=== PATIENT | female | born 1965 | race Caucasian/White ===

== ENCOUNTER 2020-03-06 14:55 | Outpatient (CLI) | payer OTHER, SELFPAY ==
--- NOTE | 2020-03-06 15:02 | MM_ITS ---
WS: [id number] BILATERAL SCREENING DIGITAL MAMMOGRAM WITH CAD HISTORY: SCREENING COMPARISON: 03/23/2018, 02/10/2017 and 01/24/2017 Bilateral CC and MLO views submitted. Computer aided detection analyzed. Breast composition: There are scattered areas of fibroglandular density. No suspicious masses, microc alcifications or architectural distortion. Benign calcifications LEFT breast. Asymmetry described on a prior study from 2017 continues to decrease and become less conspicuous. MM/[place] [id number] IMPRESSION: BI-RADS: 2-Benign FOLLOW UP: 1 Year Follow-up
--- NOTE | 2020-03-06 15:45 | XR_ITS ---
WS: [id number] SCREENING DEXA SCAN [facility] CLINICAL INFORMATION: POST MENOPAUSAL COMPARISON: None. FINDINGS: The L1-L4 bone mineral density measures 1.146 g/cm2. This corresponds to a T score score of -0.3 and Z score of -0.1. Left femoral neck bone mineral density measures 0.980 g/cm2. This corresponds to a T score of -0.2 an d Z score of 0.1. Right femoral neck bone mineral density measures 0.979 g/cm2. This corresponds to a T score -0.2of an d Z score of 0.1. Mean femoral neck bone mineral density measures 0.979 g/cm2. This corresponds to a T score of -0.2 an d Z score of 0.1. XR/XR DEXA axial skeleton* [id number] IMPRESSION: Normal bone mineralization. Patient's FRAX calculated 10 year probability for major osteoporotic fracture i s 9.4 % and osteoporotic hip fracture is 1.2%.
== END 2020-03-06 14:56 | disposition home or self-care (01) ==
LOC: RADSHAW 15:01
PROVIDERS: PCP Physician Assistant; Visit Provider Physician Assistant
DX: Z12.31 Encounter for screening mammogram for malignant neoplasm of breast (principal); Z78.0 Asymptomatic menopausal state
CPT/HCPCS: 77067; 77080

== ENCOUNTER 2021-03-07 07:20 | Outpatient (CLI) | payer OTHER, SELFPAY ==
[2021-03-07 07:30] VITALS: BP 111/70; PULSE 110; RESP 16; TEMP 36.7; O2SAT 94; BMI 27.4
[2021-03-07 07:37] VITALS: BMI 27.4
[2021-03-07 08:25] VITALS: BP 66/44; PULSE 85; RESP 14; O2SAT 98
--- NOTE | 2021-03-07 08:59 | PC.NURSE ---
Patient tolerated Regeneron monoclonal antibody infusion well. Infusion completed at 0816. Pt v/s taken: 98% o2, hr 85, rr16. Unable to get an auto bp reading. Manual bp 66/44. Pt reported feeling faint. Pt passed out in her chair and vomited. Rapid response called at 0821. Transferred pt to stretcher on her R side and placed 2L o2 on the patient. Patient came to herself and was oriented. Rapid response came at 0823 to assess patient. Patient taken up to ER via stretcher by response staff at 0825, pt was stable and oriented at that time. Keith VARGHESE
== END 2021-03-07 07:21 | disposition home or self-care (01) ==
LOC: OPS 07:25
PROVIDERS: PCP Physician Assistant; Visit Provider Nurse Practitioner Family
DX: U07.1 COVID-19 (principal)
CPT/HCPCS: 96365

== ENCOUNTER 2021-03-07 08:28 | Emergency (ER) | payer OTHER, SELFPAY ==
[2021-03-07] VITALS (9 sets, daily range): BP systolic 80–116; BP diastolic 50–86; PULSE 74–88; RESP 16–30; TEMP 36.9; O2SAT 95–100; BMI 27.0
--- NOTE | 2021-03-07 08:37 | XR_ITS ---
WS: [id number] Portable AP upright chest, 03/07/2021 Clinical Data: hypxoia, covid Comparison: PA and lateral chest, 08/22/2010. Findings: No nodules, masses or effusions are seen. The heart is normal. The pulmonary vascularity is not increased. No pneumothorax is seen. There is a minimal patchy opacity overlying the left diaphr agm which could be atelectasis and/or minimal pneumonia. Monitor leads are on the chest wall. There i s a small calcification overlying the left greater tuberosity which could represent calcific bursitis and/or tendinitis. XR/XR chest 1V portable [id number] Impression: Minimal patchy opacity overlying left diaphragm which could represent minimal p neumonia and/or atelectasis.
[2021-03-07] MEDS: diphenhydrAMINE 50 mg/mL SDV 1mL IVP (08:42)
[2021-03-07] MEDS: ondansetron 2 mg/ML SDV 2 mL 4 MG IVP (08:42)
--- NOTE | 2021-03-07 08:52 | ED_ITS ---
HPI - General Adult General: Chief complaint: General Medical Stated complaint: post infusion complications Time Seen by Provider: 03/07/21 08:30 History of Present Illness: HPI narrative: Patient is a 55-year-old female who was diagnosed with Covid on PCR 2 days ago presenting to the emergency room for complications relating to BAM infusion. [facility] have a BAM effusion 2 days ago. About 30 minutes ago, patient finished her infusion and shortly after suddenly she started having vomiting, diarrhea, and had low blood pressure. Infusion satff also noticed patient syncoped and briefly lost consciousness. A rapid response at [facility] was called and patient was brought to the emergency room for evalution. By the time, I evaluated patient, patient is AO x3, with O2 sat 89%. There is no wheezing on exam. Pressure is noted to be soft and 90/60. Patient denies any allergies to any medicine. Patient was transported to the ER. On arrival, patient was satting >95% without any r espiratory changes. Onset: 20 minutes ago Duration:20 minutes Location:home Severity:moderate Review of Systems Narrative: Constitutional: No fever, no chills. +generalized weakness HEENT: No vision changes CV: No chest pain, no palpitations PULM: no cough, no dyspnea. GI: No abdominal pain, +N/+V/+D. : No dysuria MSKEL: No muscle pain SKIN: No new rashes, no lesions. NEURO: No headache, no focal weakness. HEME: No visible bruises PSYCH: Normal mood [facility] Female Reproductive History: Date of last menstrual period: 09/28/20 Physical Exam Narrative: EXAM NARRATIVE: Head: Atraumatic Eyes: PERRL, conjunctiva without injection ENT: Mucous membrane moist, no oropharyngeal swelling NECK: Supple, ROM intact LUNGS: LCTAB, no crackles/rhonchi/wheezing CV: RRR ABDOMEN: Soft, nontender in all quadrants EXTREMITY: Normal ROM SKIN: Visible erythema, induration, orwheals NEURO: Awake and alert, no focal motor deficits PSYCH: Normal mood and affect Course Vital Signs: Vital signs: Vital Signs Temperature 98.4 F 03/07/21 08:30 Pulse Rate 83 03/07/21 11:39 Respiratory Rate 18 03/07/21 11:39 Blood Pressure 116/86 03/07/21 11:39 Pulse Oximetry 95 03/07/21 11:39 MDM - General Adult MDM Narrative: Medical decision making narrative: 55-year-old female presenting to the emergency room after having complication from BAM infusion. On arrival, patient is AAO x3, blood pressure still very soft at 90/60. Patient improved to greater than 95%. No signs of anaphylaxis at this present time given no skin findings or wheezing. However given complication we will treat empirically with Benadryl, Pepcid, IVF, and solu-medrol. X-ray did not show any signs of focal finding. Patient continues to satting well now not requiring oxygen. Patient was able to ambulate without any difficulty. No signs of oral airway compromise. Patient tolerated p.o. in the emergency room. At 11am after observation for 2 hrs, patient verbalized desire to go home. I have given patient strict return precautions for any signs of worsening shortness of breath, diarrhea, abdominal complaints, nausea vomiting, any new or concerning complaints Disposition: Discharge. Patient is given strict return compression for any new or concerning complaints. Imaging Data^: Other Imaging: Radiologist's impression: [employer] [address] ReportSigned Patient: Tiffanie Wayne AUnit #: [id number]: 1965Acct#:[id number]/Sex: 55 / FADM Date: 03/07/21Loc: [facility]/Bed:Attending Dr: Ordering Provider/Ordering MD: Terrence Swain MD Date of Service: 03/07/21 Procedure(s): XR chest 1V portable [id number] Accession Number(s): [id number] Report Number: [id number] WS: [id number] Portable AP upright chest, 03/07/2021 Clinical Data: hypxoia, covid Comparison: PA and lateral chest, 08/22/2010. Findings: No nodules, masses or effusions are seen. The heart is normal. The pulmonary vascularity is not increased. No pneumothorax is seen. There is a minimal patchy opacity overlying the left diaphragm which could be atelectasis and/or minimal pneumonia. Monitor leads are on the chest wall. There is a small calcification overlying the left greater tuberosity which could represent calcific bursitis and/or tendinitis. XR/XR chest 1V portable [id number] Impression: Minimal patchy opacity overlying left diaphragm which could represent minimal pneumonia and/or atelectasis. Dictated By:Delmi Villa MDSigned By:Delmi Villa MDSigned Date/Time:03/07/21 0855DD/ 0853 Discharge Plan Discharge Patient Disposition: Home Clinical Impression: COVID-19 Condition: Stable Prescriptions: No Action multivitamin Tablet 1 tab PO BEDTIME RF: 0 atorvastatin 40 mg tablet 40 mg PO BEDTIME RF: 0 trazodone 50 mg tablet 50 mg PO BEDTIME PRN (Reason: Sleep) RF: 0 lisinopril 20 mg tablet 20 mg PO QAM RF: 0 Tylenol Extra Strength 500 mg Tablet 1,000 mg PO Q4H PRN (Reason: Pain) RF: 0 metoprolol succinate 25 mg tablet extended release 24 hr 25 mg PO QAM RF: 0 guaifenesin 400 mg Tablet 400 mg PO Q4H PRN (Reason: Congestion) RF: 0 Discharge Orders: Discharge ED (Routine); Ordered 03/07/21 Ordered By: Terrence Swain Referrals: Marquita Sandra PA [Primary Care Provider] - Discharge Diet: Advance as tolerated Discharge Activity: Resume usual activity Patient Instructions: Severe Acute Respiratory Syndrome (SARS) (ED) Activity Restrictions/Additional Instructions: Please come back to the emergency room have any shortness of breath, difficulty breathing, worsening diarrhea, fever or chills, or new or concerning complaints. Coding Level of Care Code ED Drying Machine Tender for Analilia Harrell
[2021-03-07] MEDS: sodium chloride 0.9% 1,000 ML 999 ML IV ×2 (09:00)
[2021-03-07] MEDS: famotidine 20 mg/2 mL INJ IVP (09:00)
== END 2021-03-07 11:39 | disposition home or self-care (01) ==
PROVIDERS: Emergency Provider Emergency Medicine; PCP Physician Assistant
DX: U07.1 COVID-19 (principal)
CPT/HCPCS: 71045; 96361; 96374; 96375; 99284; J1200; J2405; J2930; J3490; J7030

== ENCOUNTER 2021-03-09 13:23 | Emergency (ER) | payer OTHER, SELFPAY ==
[2021-03-09 14:25] VITALS: BP 142/82; PULSE 98; RESP 20; TEMP 37.1; O2SAT 96; BMI 29.2
--- NOTE | 2021-03-09 15:17 | XRR_ITS ---
PROCEDURE INFORMATION: Exam: XR Chest Exam date and time: 03/09/2021 3:17 PM Age: 55 years old Clinical indication: Condition or disease; Other: Covid TECHNIQUE: Imaging protocol: XR of the chest. Views: 1 view. COMPARISON: CR XR chest 1V portable [id number] 03/07/2021 8:40 AM FINDINGS: Lungs: Unremarkable. No consolidation. Pleural spaces: Unremarkable. No pleural effusion. No pneumothorax. Heart/Mediastinum: Unremarkable. No cardiomegaly. Bones/joints: Unremarkable. XR/XR chest 1V portable [id number] IMPRESSION: No acute findings.
[2021-03-09 19:38] LABS: Basophils % 0.2 %; Eosinophils % 0.2 %; Hematocrit 48.8 % (37.0-47.0); Hemoglobin 15.6 g/dL (11.5-15.3); Lymphocytes # 3.2 10^3/uL (0.8-4.8); Mean Corpuscular Hemoglobin 28.2 pg (28.0-34.0); Mean Corpuscular Volume 88.1 fl (81-99); Mean Platelet Volume 9.5 fL (7.4-10.4); Monocytes # 0.6 10^3/uL (0.2-0.9); Neutrophils # 4.41 10^3/uL (1.8-7.7); Neutrophils % 53.4 %; Nucleated Red Blood Cells % 0 %; Platelet Count 226 10^3/cmm (130-400); Red Blood Count 5.54 10^6/uL (4.1-5.3); Red Cell Distribution Width 13.9 % (12.1-15.1); White Blood Count 8.3 10^3/uL (4.0-10.0)
--- NOTE | 2021-03-09 20:03 | ED_ITS ---
HPI - COVID General: Chief Complaint: COVID symptoms Stated Complaint: sob, positive covid Time Seen by Provider: 03/09/21 20:03 Triage information: Has fever, cough or shortness of breath . Exposure to COVID + person last 14 days History of Present Illness: HPI Narrative: 55-year-old female comes in today with complaints of lightheadedness and nausea. Patient is on day 6 of COVID-19 infection. Patient was treated with monoclonal antibodies on Friday and reported a mild reaction. Patient was seen yesterday and given some IV fluids which seemed to help but then today she started having more lightheadedness and thought she may need to have more IV fluids. Patient reports some nausea and diarrhea persistent. Patient appears mildly unwell but not toxic. Patient appears no acute distress. MD complaint: known COVID positive COVID 19 common symptoms: positive nausea and diarrhea COVID Results: No Data to Display Review of Systems General: Reports: 10 or more systems reviewed and unremarkable except in HPI and below GI: Reports: nausea and diarrhea Neuro: Reports: other (light headed) [facility] ED Female Reproductive History: Date of last menstrual period: 09/28/20 Physical Exam Const: COMMON NORMALS: no acute distress and patient oriented x3 GENERAL APPEARANCE: cooperative HENMT: COMMON NORMALS: normocephalic and Normal external nose present HEAD & SCALP: normal to inspection and normocephalic NOSE: Normal external nose present MOUTH: Normal oral and palatal mucosa present Eye: GENERAL EYE: appearance normal, both eyes and all related structures Neck/C-Spine: COMMON NORMALS: full ROM Chest: COMMONS NORMALS: normal inspection of the chest Resp: COMMON NORMALS: normal respiratory effort and clear to auscultation bilaterally EFFORT & INSPECTION: Yes able to speak in complete sentences AUSCULTATION: clear to auscultation bilaterally Cardio: COMMON NORMALS: regular rate and regular rhythm RATE: regular rate RHYTHM: regular rhythm GI: COMMON NORMALS: Soft to palpation and non-tender AUSCULTATION: Yes Hyperactive bowel sounds present PALPATION: Yes Soft to palpation : COMMON NORMALS: Yes no CVA tenderness BLADDER/KIDNEY EXAM: Yes no CVA tenderness Back/Pelvis: COMMON NORMALS: no CVA tenderness and thoracic and lumbar spine normal to inspection Extremity: COMMON NORMALS: normal to inspection Neuro: COMMON NORMALS: patient oriented x3 and moves all extremities Psych: COMMON NORMALS: mental status grossly normal and cooperative Skin: COMMON NORMALS: no rashes or lesions noted GENERAL SKIN EXAM: no rashes or lesions noted Course Vital Signs: Vital signs: Vital Signs Temperature 98.1 F 03/09/21 20:10 Pulse Rate 68 03/09/21 20:37 Respiratory Rate 16 03/09/21 20:37 Blood Pressure 130/86 03/09/21 20:37 Pulse Oximetry 95 03/09/21 20:37 MDM - COVID MDM Narrative: Medical decision making narrative: 55-year-old female comes in today with complaints of lightheadedness and feeling of malaise. Patient has had COVID-19 for the last 6 days. Patient did have to be seen 2 days ago and given IV fluids for some lightheadedness and not feeling well. Patient reports persistent diarrhea. On exam abdomen soft nontender. Skin is warm and dry. Vital signs are normal. Differential diagnosis includes dehydration, viral syndrome, pneumonia. Chest x-ray did not show any pneumonia at this time. Hemoglobin adequate a little bit elevated as compared to prior lab. Sodium is 134 and anion gap is 21. Suspect patient has some mild dehydration be infused with 1 L of IV fluid and give some Zofran to help with the lightheadedness. Patient will be continued on Zofran at home and encouraged to drink plenty of fluids and follow-up with primary care. Lab Data: Labs: Lab Results 03/09/21 03/09/21 Range/Units 19:31 19:31 WBC 8.3 (4.0-10.0) 10^3/ uL RBC 5.54 H (4.1-5.3) 10^6/u L Hgb 15.6 H (11.5-15.3) g/dL Hct 48.8 H (37.0-47.0) % MCV 88.1 (81-99) fl MCH 28.2 (28.0-34.0) pg MCHC 32.0 (30.0-36.0) g/dL RDW 13.9 (12.1-15.1) % Plt Count 226 (130-400) 10^3/c mm MPV 9.5 (7.4-10.4) fL Neut % (Auto) 53.4 % Lymph % (Auto) 39.0 % [place] % (Auto) 7.0 % Eos % (Auto) 0.2 % Baso % (Auto) 0.2 % Neut # (Auto) 4.41 (1.8-7.7) 10^3/u L Lymph # (Auto) 3.2 (0.8-4.8) 10^3/u L [place] # (Auto) 0.6 (0.2-0.9) 10^3/u L Eos # (Auto) 0.0 (0.0-0.8) 10^3/u L Baso # (Auto) 0.0 (0.0-0.1) 10^3/u L Nucleated RBC % (a uto) 0 % Nucleated RBCs # 0.0 /100WBC Sodium 134 L (136-145) mmol/L Potassium 4.3 (3.5-5.1) mmol/L Chloride 99 (98-107) mmol/L Carbon Dioxide 21 L (22-29) mmol/L Anion Gap 18.3 (5-19) BUN 13 (6-20) mg/dL Creatinine 0.6 (0.5-0.9) mg/dL GFR Calculation 104.6 (90-130) mL/min Glucose 91 (65-115) mg/dL Calculated Osmolal ity 278 L (285-295) mOsm/k g Calcium 9.2 (8.5-10.5) mg/dL Total Bilirubin 0.3 (0.15-1.2) mg/dL AST 27 (0-32) U/L ALT 29 (0-33) U/L Alkaline Phosphata se 69 (35-105) IU/L C-Reactive Protein 3.3 (0.0-4.9) mg/L Total Protein 8.0 (6.6-8.7) g/dL Albumin 3.9 (3.5-5.2) g/dL Globulin 4.1 (1.3-4.6) g/dL COVID Results: No Data to Display Discharge Plan Discharge Patient Disposition: Home Clinical Impression: COVID-19, Mild dehydration Condition: Stable Prescriptions: New ondansetron 4 mg tablet,disintegrating 4 mg PO Q8H PRN (Reason: nausea and vomiting) Qty: 10 RF: 0 No Action multivitamin Tablet 1 tab PO BEDTIME RF: 0 atorvastatin 40 mg tablet 40 mg PO BEDTIME RF: 0 trazodone 50 mg tablet 50 mg PO BEDTIME PRN (Reason: Sleep) RF: 0 lisinopril 20 mg tablet 20 mg PO DAILY RF: 0 acetaminophen [Tylenol Extra Strength] 500 mg Tablet 1,000 mg PO Q4H PRN (Reason: Pain) RF: 0 metoprolol succinate 25 mg tablet extended release 24 hr 25 mg PO DAILY RF: 0 guaifenesin 400 mg Tablet 400 mg PO Q4H PRN (Reason: Congestion) RF: 0 magnesium 200 mg Tablet 200 mg PO DAILY RF: 0 zinc 50 mg Capsule 50 mg PO DAILY RF: 0 Vitamin D3 25 mcg (1,000 unit) Tablet 25 mcg PO DAILY RF: 0 Discharge Orders: Discharge ED (Routine); Ordered 03/09/21 Ordered By: Clarence Jones Referrals: Marquita Sandra PA [Primary Care Provider] - Discharge Diet: Usual diet Discharge Activity: Increase activity as tolerated Patient Instructions: Viral Syndrome (ED), Opioid Safety Coding Level of Care Code ED Rhinologist for Analilia Fwd Exam Comprehensive
[2021-03-09 20:04] LABS: Alanine Aminotransferase 29 U/L (0-33); Albumin Level 3.9 g/dL (3.5-5.2); Alkaline Phosphatase 69 IU/L (35-105); Anion Gap 18.3 (5-19); Aspartate Amino Transferase 27 U/L (0-32); Blood Urea Nitrogen 13 mg/dL (6-20); C Reactive Protein 3.3 mg/L (0.0-4.9); Calcium 9.2 mg/dL (8.5-10.5); Carbon Dioxide 21 mmol/L (22-29); Chloride 99 mmol/L (98-107); Creatinine Clr Calc Pharmacy 101.1506; Globulin 4.1 g/dL (1.3-4.6); Glomerular Filtration Rate 104.6 mL/min (90-130); Glucose 91 mg/dL (65-115); Osmolality Calculated 278 mOsm/kg (285-295); Potassium 4.3 mmol/L (3.5-5.1); Sodium 134 mmol/L (136-145); Total Bilirubin 0.3 mg/dL (0.15-1.2)
--- NOTE | 2021-03-09 20:09 | PC.NURSE ---
Assumed care if this patient at this time.
[2021-03-09 20:10] VITALS: BP 149/85; PULSE 78; RESP 16; TEMP 36.7; O2SAT 97
[2021-03-09 20:17] VITALS: O2SAT 96
[2021-03-09 20:23] LABS: Slide Review Slide Review Perform
[2021-03-09] MEDS: sodium chloride 0.9% 1,000 ML 999 ML IV (20:30)
[2021-03-09] MEDS: ondansetron 2 mg/ML SDV 2 mL 4 MG IVP (20:30)
[2021-03-09 20:37] VITALS: BP 130/86; PULSE 68; RESP 16; O2SAT 95
[2021-03-09 22:15] VITALS: BP 152/89; PULSE 68; RESP 16; TEMP 36.6; O2SAT 96
== END 2021-03-09 22:17 | disposition home or self-care (01) ==
PROVIDERS: Physician Assistant; Emergency Provider Nurse Practitioner Family; PCP Physician Assistant
DX: U07.1 COVID-19 (principal); E86.0 Dehydration
CPT/HCPCS: 71045; 80053; 85025; 86140; 96361; 96374; 99284; J2405; J7030

== ENCOUNTER 2021-04-25 15:07 | Outpatient (CLI) | payer OTHER, SELFPAY ==
--- NOTE | 2021-04-25 15:11 | MM_ITS ---
WS: [id number] BILATERAL DIGITAL SCREENING MAMMOGRAPHY WITH CAD CLINICAL INFORMATION: SCREENING HISTORY: Screening mammogram. No current complaints. COMPARISON: March 06, 2020 TECHNIQUE: Bilateral CC and MLO views. FINDINGS: Scattered fibroglandular densities bilaterally. Lucent centered calcifications left breast. No suspic ious focal mass, asymmetry, calcifications, or architectural distortion. No evidence of malignancy. MM/[place] [id number] IMPRESSION: BI-RADS: 2-Benign FOLLOW UP: 1 Year Follow-up Recommend return to annual screening mammography.
== END 2021-04-25 15:08 | disposition home or self-care (01) ==
LOC: RADSHAW 15:10
PROVIDERS: PCP Physician Assistant; Visit Provider Physician Assistant
DX: Z12.31 Encounter for screening mammogram for malignant neoplasm of breast (principal)
CPT/HCPCS: 77067

== ENCOUNTER 2022-04-15 16:41 | Outpatient (CLI) | payer OTHER, SELFPAY ==
--- NOTE | 2022-04-15 16:54 | CT_ITS ---
WS: [id number] LDCT LUNG CANCER SCREENING HISTORY: NICOTINE DEPENDENCE TECHNIQUE: Axial imaging performed from the apices to 1 cm below the costophrenic angles. Coronal and sagittal reformats are submitted with axial MIP series. All CT scans at [facility] use at least one of these dose optimization techniques: automated exposure control; mA and/or kV adjustment per patient size (includes targeted exams where dose is matched to clinical indication); or iterativ e reconstruction. DLP: 71.62 mGy.cm DIvol: Mean CTDIvol: 1.60 (mGy) COMPARISON: None available. Diagnostic quality: Satisfactory Lung Nodules: There are a few scattered calcified granulomata. Mild nodularity along the RIGHT minor fissure. No suspicious mass or nodule. There are a few areas of groundglass attenuation scattered in the upper lung olivares. Subsegmental areas of atelectasis or scarring at the lung bases. No endobronch ial lesion. There is a thin septation through the proximal RIGHT mainstem bronchus. Lungs: Chronic emphysema. Heart: Mildly enlarged heart. No pericardial effusion. Other findings: Mild atherosclerosis aorta. Aberrant RIGHT subclavian vein. Small hiatal hernia. Mode rate increase in thoracic kyphosis with disc space narrowing. CT/CT lung screening [id number] IMPRESSION: LUNG-RADS: 1-Negative FOLLOW UP: 12 Month: Continue annual screening with LDCT OTHER FINDINGS (S MODIFIER): None.
== END 2022-04-15 16:42 | disposition home or self-care (01) ==
LOC: RAD 16:42
PROVIDERS: PCP Physician Assistant; Visit Provider Physician Assistant
DX: Z12.2 Encounter for screening for malignant neoplasm of respiratory organs (principal); F17.210 Nicotine dependence, cigarettes, uncomplicated
CPT/HCPCS: 71271

== ENCOUNTER 2022-04-29 15:37 | Outpatient (CLI) | payer OTHER, SELFPAY ==
--- NOTE | 2022-04-29 15:48 | MM_ITS ---
WS: [id number] BILATERAL 3D TOMOSYNTHESIS DIGITAL SCREENING MAMMOGRAPHY WITH CAD CLINICAL INFORMATION: SCREEN HISTORY: Screening mammogram. No current complaints. COMPARISON: April 25, 2021 TECHNIQUE: Bilateral CC and MLO views. FINDINGS: Scattered fibroglandular densities bilaterally. No suspicious focal mass, asymmetry, calcifications, or architectural distortion. No evidence of malignancy. Punctate and lucent centered calcifications. MM/[place] [id number] IMPRESSION: BI-RADS: 2-Benign FOLLOW UP: 1 Year Follow-up Recommend return to annual screening mammography.
== END 2022-04-29 15:38 | disposition home or self-care (01) ==
PROVIDERS: PCP Physician Assistant; Visit Provider Physician Assistant
DX: Z12.31 Encounter for screening mammogram for malignant neoplasm of breast (principal)
CPT/HCPCS: 77063; 77067

== ENCOUNTER 2023-01-25 09:17 | Emergency (ER) | payer OTHER, SELFPAY ==
[2023-01-25 09:21] VITALS: BP 190/107; PULSE 86; RESP 15; TEMP 36.7; O2SAT 96
--- NOTE | 2023-01-25 09:28 | ECG_ITS ---
[facility] Test Date: 2023-01-25 Pat Name: Tiffanie Wayne Department: Room: Gender: Female Orthotist/Prosthetist: : 1965 Requested By: Zia Connelly Order Number: [id number] Delmis MD: Khushboo Lopez M.D. Measurements Intervals [place] Rate: 85 P: 64 SC: 159 QRS: 58 QRSD: 81 T: 45 QT: 350 QTc: 417 Interpretive Statements SINUS RHYTHM No previous ECG available for comparison Electronically Signed On 01-25-2023 11:41:08 CDT by Khushboo Lopez M.D. [email or web address]
--- NOTE | 2023-01-25 09:41 | XRR_ITS ---
PROCEDURE INFORMATION: Exam: XR Chest Exam date and time: 01/25/2023 10:22 AM Age: 57 years old Clinical indication: Pain; Chest pressure; Additional info: Chest tightness, cough TECHNIQUE: Imaging protocol: Radiologic exam of the chest. Views: 1 view. COMPARISON: CT lung screening [id number] 04/15/2022 4:55 PM FINDINGS: Lungs: The lung parenchyma is clear. Pleural spaces: No pneumothorax. No pleural effusion. Heart/Mediastinum: The cardiomediastinal silhouette is within normal limits. Bones/joints: Unremarkable. XR/XR chest 1V portable [id number] IMPRESSION: No acute cardiopulmonary abnormality.
--- NOTE | 2023-01-25 09:44 | W.ED.WEAKNES ---
HPI - Weakness General: Chief complaint: Weakness Stated complaint: tightness in chest, weakness, Nausea Time Seen by Provider: 01/25/23 09:30 History of Present Illness: Patient is a 57-year-old female that presents to the emergency department with complaints of dizziness, nausea, generalized weakness and tightness in her chest x6 days. Patient reports her symptoms have progressively worsened since Friday He also notes increased blood pressure and spite of lisinopril and metoprolol throughout the week. Currently blood pressure is 190/107 Has not taken any additional medications this morning Denies any actual vomiting, syncope, shortness of breath. Patient states that nothing makes her symptoms worse but sometimes activity will help her symptoms resolved. Associated symptoms: Reports chest pain (Chest tightness) and nausea; Denies chills, confusion, dysuria, easy bruising, fever(s), headache(s) or vomiting Review of Systems General: Reports: 10 or more systems reviewed and unremarkable except in HPI and below Const: Denies: fever(s), chills, change in appetite, change in weight, fatigue or malaise Eyes: Denies: change in vision, eye discomfort, eye discharge or eye redness ENMT: Denies: throat pain, enlarged tonsils, odynophagia, hoarseness, ear or mastoid pain, ear discharge, change in hearing, tinnitus, nasal discharge, nasal congestion, post nasal drip or sinus pain Card: Reports: chest pain (Chest tightness) and lightheadedness; Denies: palpitations, irregular heart rhythm, edema, dyspnea on exertion, orthopnea or leg pain with exertion Resp: Reports: productive cough and chest congestion; Denies: dyspnea, non-productive cough, wheezing or stridor GI: Reports: nausea; Denies: abdominal pain, vomiting, dysphagia, diarrhea, constipation, bloating, GI cramping or hematochezia : Denies: flank pain, difficulty voiding, dysuria, urinary frequency, urinary urgency, urinary hesitancy, oliguria or hematuria Musc: Denies: neck pain, back pain, extremity pain, joint pain, joint swelling, joint redness, joint warmth or muscle weakness Skin/Breast: Denies: rash, pruritus, erythema, photosensitivity or new lesions Neuro: Denies: headache(s), numbness in extremities, weakness in extremities, sensory changes, lack of coordination, difficulty walking, frequent falls, dizziness, confusion, Slurred speech present, difficulty communicating thoughts, seizure-like activity or involuntary movements Endo: Denies: polyuria, polydipsia or tired all the time Joaquin/Lymph: Denies: easy bruising or easy bleeding Physical Exam Const: COMMON NORMALS: no acute distress, patient oriented x3 and alert GENERAL APPEARANCE: cooperative ORIENTATION/CONSCIOUSNESS: Yes awake, Yes oriented to person, Yes oriented to place and Yes oriented to time HENMT: COMMON NORMALS: normocephalic and atraumatic HEAD & SCALP: normocephalic and atraumatic FACE & SINUS: normal facial exam MOUTH: Normal oral and palatal mucosa present THROAT: posterior oropharynx normal Eye: COMMON NORMALS: Equal, round and reactive pupils present, EOMs intact bilaterally, conjunctivae normal and no scleral icterus GENERAL EYE: appearance normal, both eyes and all related structures ALIGNMENT: Yes alignment normal PERIORBITAL: periorbital findings normal CONJUNCTIVA: Yes conjunctivae normal PUPIL: Yes Equal, round and reactive pupils present Neck/C-Spine: COMMON NORMALS: full ROM GENERAL: Yes normal visual inspection Lymph: LYMPHATIC: no lymphadenopathy noted Chest: COMMONS NORMALS: normal inspection of the chest Breast/axilla inspection: Yes no chest deformity, asymmetry, normal contours, no nodules, masses, tenderness Resp: COMMON NORMALS: normal respiratory effort, No retractions and No use of accessory muscles EFFORT & INSPECTION: Yes able to speak in complete sentences and Yes symmetric chest movement AUSCULTATION: rhonchi Cardio: COMMON NORMALS: regular rate, regular rhythm and Peripheral pulses 2+ throughout RATE: regular rate RHYTHM: regular rhythm PERIPHERAL PULSES: Peripheral pulses 2+ throughout GI: COMMON NORMALS: Normal to inspection, nondistended, normoactive bowel sounds present, Soft to palpation, non-tender and No hepatosplenomegaly present INSPECTION: Yes normal to inspection AUSCULTATION: Yes normoactive bowel sounds PALPATION: Yes Soft to palpation and Yes No hepatosplenomegaly present RECTAL EXAM: deferred Extremity: COMMON NORMALS: normal to inspection GENERAL: Yes normal exam except as noted Neuro: COMMON NORMALS: patient oriented x3 SENSORIUM/ORIENTATION: Yes alert, Yes oriented to person, Yes oriented to place and Yes oriented to time CRANIAL NERVES: Yes CN normal except as noted Psych: COMMON NORMALS: mental status grossly normal, Normal thought process present, cooperative, activity/motor behavior normal, denies homicidal ideation and denies suicidal ideation THOUGHT PROCESS: Normal thought process present Skin: COMMON NORMALS: no rashes or lesions noted, no wounds and turgor normal GENERAL SKIN EXAM: no rashes or lesions noted and turgor normal Course Vital Signs: Vital signs: Vital Signs Temperature 98.1 F 01/25/23 09:21 Pulse Rate 69 01/25/23 13:31 Respiratory Rate 15 01/25/23 13:31 Blood Pressure 181/103 01/25/23 13:31 Pulse Oximetry 96 01/25/23 13:31 Oxygen Delivery Me thod Room Air 01/25/23 13:31 MDM - Weakness Medical Decision Making Patient was evaluated in the emergency department today for complaints of high blood pressure, chest tightness, dizziness, nausea. Patient states she has previously been on metoprolol and lisinopril for blood pressure management. Currently she is using her metoprolol only as needed. Typically takes her lisinopril at night with the occasional metoprolol. Patient reports noticing this week hypertension despite these medications. The associated symptoms include nausea, dizziness, some chest tightness. She also has a productive cough She is 1 pack a day smoker Patient underwent diagnostics and laboratory studies while in the emergency department EKG was initially performed at 928. It reveals sinus rhythm with a ventricular rate of 85 beats a minute and a QTc of 392. There is no evidence of ectopy, ST elevation or abnormal T wave inversions Subsequent EKGs completed reveal no significant change. Patient does occasionally have a sinus tachycardia in the 110 range but this resolves quickly Chest x-ray reveals no acute findings. Amatory study reveals a white count of 10.9. No significant anemias, electrolyte disturbances abnormal liver function or renal function. Patient does describe thick sputum with congestion and cough. This typically white but will become a little pavon-tinged. She is not diagnosed with COPD but is a daily smoker. I am going to treat her for a bronchitis. I treated her blood pressure here in the emergency department with hydralazine. I explained her that I would not mess with her home medications. She needs to go through her PCP for any ongoing issues. Patient is agreeable and will be calling her primary care on Friday. Lab Data 01/25/23 10:10 01/25/23 10:10 Radiology Impressions Chest X-Ray 01/25/23 09:41 IMPRESSION: No acute cardiopulmonary abnormality. Laboratory Results WBC 10.9 10^3/uL (4.0-10.0) H 01/25/23 10:10 RBC 5.39 10^6/uL (4.1-5.3) H 01/25/23 10:10 Hgb 15.0 g/dL (11.5-15.3) 01/25/23 10:10 Hct 46.5 % (37.0-47.0) 01/25/23 10:10 MCV 86.3 fl (81-99) 01/25/23 10:10 MCH 27.8 pg (28.0-34.0) L 01/25/23 10:10 MCHC 32.3 g/dL (30.0-36.0) 01/25/23 10:10 RDW 13.6 % (12.1-15.1) 01/25/23 10:10 Plt Count 302 10^3/cmm (130-400) 01/25/23 10:10 MPV 10.5 fL (7.4-10.4) H 01/25/23 10:10 Neut % (Auto) 76.2 % 01/25/23 10:10 Lymph % (Auto) 18.3 % 01/25/23 10:10 Harvey % (Auto) 4.4 % 01/25/23 10:10 Eos % (Auto) 0.3 % 01/25/23 10:10 Baso % (Auto) 0.5 % 01/25/23 10:10 Neut # (Auto) 8.30 10^3/uL (1.8-7.7) H 01/25/23 10:10 Lymph # (Auto) 2.0 10^3/uL (0.8-4.8) 01/25/23 10:10 Harvey # (Auto) 0.5 10^3/uL (0.2-0.9) 01/25/23 10:10 Eos # (Auto) 0.0 10^3/uL (0.0-0.8) 01/25/23 10:10 Baso # (Auto) 0.1 10^3/uL (0.0-0.1) 01/25/23 10:10 Nucleated RBC % (auto) 0 % 01/25/23 10:10 Nucleated RBCs # 0.0 /100WBC 01/25/23 10:10 PT 12.60 SECONDS (12.1-14.9) 01/25/23 10:10 INR 0.92 (0.8-1.2) 01/25/23 10:10 APTT 32.9 SECONDS (23.9-36.7) 01/25/23 10:10 Sodium 139 mmol/L (136-145) 01/25/23 10:10 Potassium 4.2 mmol/L (3.5-5.1) 01/25/23 10:10 Chloride 103 mmol/L (98-107) 01/25/23 10:10 Carbon Dioxide 24 mmol/L (22-29) 01/25/23 10:10 Anion Gap 16.2 (5-19) 01/25/23 10:10 BUN 18 mg/dL (6-20) 01/25/23 10:10 Creatinine 0.8 mg/dL (0.5-0.9) 01/25/23 10:10 GFR Calculation 74.5 mL/min (90-130) L 01/25/23 10:10 Glucose 109 mg/dL (65-115) 01/25/23 10:10 Calculated Osmolality 290 mOsm/kg (285-295) 01/25/23 10:10 Calcium 9.3 mg/dL (8.5-10.5) 01/25/23 10:10 Total Bilirubin 0.2 mg/dL (0.15-1.2) 01/25/23 10:10 AST 14 U/L (0-32) 01/25/23 10:10 ALT 20 U/L (0-33) 01/25/23 10:10 Alkaline Phosphatase 89 U/L (35-105) 01/25/23 10:10 Troponin T Baseline 6 ng/L (0-10) 01/25/23 10:10 Troponin T 120 Minute 6.00 ng/L (0-10) 01/25/23 12:36 Delta Troponin T 0 ABS# (0-10) 01/25/23 12:36 NT-Pro-B Natriuret Pep 105 pg/mL (0-125) 01/25/23 10:10 Total Protein 7.4 g/dL (6.6-8.7) 01/25/23 10:10 Albumin 4.1 g/dL (3.5-5.2) 01/25/23 10:10 Globulin 3.3 g/dL (1.3-4.6) 01/25/23 10:10 Discharge Plan Discharge Patient Disposition: Home Clinical Impression: Hypertension, Bronchitis Condition: Stable Prescriptions: New amoxicillin-pot clavulanate 875-125 mg tablet 1 tab PO BID 5 Days Qty: 10 0RF ondansetron 4 mg tablet,disintegrating 4 mg PO Q8H PRN (Reason: nausea and vomiting) 5 Days Qty: 14 0RF albuterol sulfate [Proventil HFA] 90 mcg/actuation HFA aerosol inhaler 1 inh inhalation QID PRN (Reason: shortness of breath or wheezing) Qty: 6.7 0RF No Action multivitamin Tablet 1 tab PO BEDTIME atorvastatin 40 mg tablet 40 mg PO BEDTIME trazodone 50 mg tablet 50 mg PO BEDTIME PRN (Reason: Sleep) lisinopril 20 mg tablet 20 mg PO QPM acetaminophen [Tylenol Extra Strength] 500 mg Tablet 1,000 mg PO Q4H PRN (Reason: Pain) metoprolol succinate 25 mg tablet extended release 24 hr 25 mg PO QPM guaifenesin 400 mg Tablet 400 mg PO Q4H PRN (Reason: Congestion) magnesium 200 mg Tablet 200 mg PO DAILY cholecalciferol (vitamin D3) [Vitamin D3] 25 mcg (1,000 unit) Tablet 25 mcg PO DAILY ondansetron 4 mg tablet,disintegrating 4 mg PO Q8H PRN (Reason: nausea and vomiting) Qty: 10 0RF Discharge Orders: Discharge ED (Routine); Ordered 01/25/23 Ordered By: Zia Echeverria Referrals: Marquita Sandra PA [Primary Care Provider] - Discharge Diet: Advance as tolerated Discharge Activity: Resume usual activity Patient Instructions: How to Stop Smoking (ED), Acute Bronchitis (ED), Chronic Hypertension (DC), Pain Management Activity Restrictions/Additional Instructions: Please take your blood pressure medication as prescribed Make sure that you follow-up with your primary care doctor regarding your blood pressure on Friday. Call for an appointment. I treated your blood pressure here in the emergency department with a drug called hydralazine. With the description of chest congestion, chest tightness, productive cough I am treating you for bronchitis. Use your guaifenesin to help with your congestion. I am also giving you an inhaler. Going to give you Augmentin for 5 days. Please take as prescribed I am also giving you prescription for nausea?Zofran. You are going to take 1 tablet up to 3 times a day as needed for nausea. Please return to the emergency department for new concerning or worsening symptoms Coding Level of Care Code ED Senior Net Software Developer for Analilia Harrell
[2023-01-25 10:55] LABS: Basophils # 0.1 10^3/uL (0.0-0.1); Basophils % 0.5 %; Eosinophils % 0.3 %; Hematocrit 46.5 % (37.0-47.0); Lymphocytes % 18.3 %; Mean Corpuscular HGB Conc 32.3 g/dL (30.0-36.0); Mean Corpuscular Hemoglobin 27.8 pg (28.0-34.0); Mean Corpuscular Volume 86.3 fl (81-99); Mean Platelet Volume 10.5 fL (7.4-10.4); Monocytes # 0.5 10^3/uL (0.2-0.9); Monocytes % 4.4 %; Neutrophils % 76.2 %; Nucleated Red Blood Cells % 0 %; Platelet Count 302 10^3/cmm (130-400); Red Blood Count 5.39 10^6/uL (4.1-5.3); Red Cell Distribution Width 13.6 % (12.1-15.1); White Blood Count 10.9 10^3/uL (4.0-10.0)
[2023-01-25 11:12] LABS: INR 0.92 (0.8-1.2)
[2023-01-25 11:13] LABS: Partial Thromboplastin Time 32.9 SECONDS (23.9-36.7)
[2023-01-25 11:15] LABS: Troponin(5th) Baseline 6 ng/L (0-10)
[2023-01-25 11:25] LABS: Alanine Aminotransferase 20 U/L (0-33); Albumin Level 4.1 g/dL (3.5-5.2); Alkaline Phosphatase 89 U/L (35-105); Anion Gap 16.2 (5-19); Aspartate Amino Transferase 14 U/L (0-32); Blood Urea Nitrogen 18 mg/dL (6-20); Calcium 9.3 mg/dL (8.5-10.5); Carbon Dioxide 24 mmol/L (22-29); Chloride 103 mmol/L (98-107); Globulin 3.3 g/dL (1.3-4.6); Glomerular Filtration Rate 74.5 mL/min (90-130); Glucose 109 mg/dL (65-115); NT Pro B Type Natriuretic Pept 105 pg/mL (0-125); Osmolality Calculated 290 mOsm/kg (285-295); Potassium 4.2 mmol/L (3.5-5.1); Sodium 139 mmol/L (136-145); Total Bilirubin 0.2 mg/dL (0.15-1.2); Total Protein 7.4 g/dL (6.6-8.7)
--- NOTE | 2023-01-25 11:51 | ECG_ITS ---
[facility] Test Date: 2023-01-25 Pat Name: Tiffanie Wayne Department: Room: Gender: Female Brazer Crawler Torch: : 1965 Requested By: Zia Connelly Order Number: [id number] Delmis MD: Khushboo Lopez M.D. Measurements Intervals [place] Rate: 64 P: 62 IL: 169 QRS: 63 QRSD: 88 T: 40 QT: 399 QTc: 412 Interpretive Statements SINUS RHYTHM WITH SINUS ARRHYTHMIA Compared to ECG 01/25/2023 09:28:40 No significant changes Electronically Signed On 01-26-2023 11:28:11 CDT by Khushboo Lopez M.D. [id number]
[2023-01-25 12:35] VITALS: BP 166/94; PULSE 71; RESP 16; O2SAT 96
[2023-01-25 13:14] VITALS: BP 167/98; PULSE 88; RESP 18; O2SAT 98
[2023-01-25 13:31] VITALS: BP 181/103; PULSE 69; RESP 15; O2SAT 96
[2023-01-25 13:53] LABS: Troponin 5 2HR Delta 0 ABS# (0-10)
[2023-01-25 14:25] VITALS: BP 182/110; PULSE 73; O2SAT 95
[2023-01-25] MEDS: hyDRALAzine 20 mg/mL INJ 1 mL 10 MG IVP (14:25)
--- NOTE | 2023-01-25 14:45 | PC.NURSE ---
PT AND FAMILY WERE NOTIFIED OF DISCHARGE ORDERS BEING PUT IN. PT AND FAMILY SEEMED UNHAPPY WITH THE NEWS. LUCEROR NOTIFIED AND SPOKE WITH FAMILY. AFTER DISCUSSION WITH LOGAN, DR. SAUCEDO SPOKE WITH FAMILY TO ALSO REITERATE THAT THE PT WAS OKAY TO GO HOME. PT AND FAMILY OKAY WITH DISCHARGE AFTER DISCUSSION WITH BOTH LOGAN AND SHERYL. VITALS WERE TAKEN BEFORE DISCHARGE AND WERE WITHIN NORMAL LIMITS.
[2023-01-25 15:06] VITALS: BP 156/84; PULSE 76; RESP 18; TEMP 36.7; O2SAT 96
[2023-01-27 13:33] LABS: Lyme AB Screen <0.90 index
[2023-01-30 17:03] LABS: E. Chaffeensis AB IGG <1:64; E. Chaffeensis AB IGM <1:20; RMSF IGG NOT DETECTED; RMSF IGM NOT DETECTED
== END 2023-01-25 15:20 | disposition home or self-care (01) ==
PROVIDERS: Emergency Provider Nurse Practitioner; PCP Physician Assistant
DX: J40 Bronchitis, not specified as acute or chronic (principal); I10 Essential (primary) hypertension
CPT/HCPCS: 71045; 80053; 83880; 84484; 85025; 85610; 85730; 86618; 86666; 86757; 93005; 96374; 99285; J0360

== ENCOUNTER 2023-03-17 07:57 | Outpatient (CLI) | payer OTHER, SELFPAY ==
[2023-03-17 08:12] VITALS: BMI 30.2
--- NOTE | 2023-03-17 08:15 | NMCV_ITS ---
NM mallika perf SPECT r/s* [id number] Tiffanie Wayne Age: 57 Gender: F : 1965 Exam Date: 03/17/2023 08:57 Ordering Phys: Marquita Sandra Technologist: REY Cross Exam Location: [facility] Indications: CHEST PAIN STRESS TEST [facility] IMAGE PROTOCOL Rest/Stress 1 Exercise Day Radiopharmaceutical Dose (mCi) Administration Site Administered by Rest: Tc-99m 11.0 IV REY Bustillo Sestamibi Stress:Tc-99m 32.4 IV REY Bustillo Sestamibi Rest: 17-Mar-2023 11.0 Discovery 630 Stress: 17-Mar-2023 32.4 Discovery 630 Images obtained in supine and prone position. Radiopharmaceutical was injected at 92 % maximum heart rate. SPECT RESULTS Technical Quality: Excellent Raw Data Analysis: Normal Image Corrections: No attenuation or motion correction applied Summed Stress Score: 0 Summed Rest Score: 0 Summed Difference Score: 0 PERFUSION FINDINGS SPECT images demonstrate homogeneous tracer distribution throughout the myocardium. FUNCTIONAL RESULTS (calculated via Gated SPECT) Stress Image LV EF (%): 86 Stress EDV (mL):51 TID: 0.97 Stress ESV (mL):7 FUNCTIONAL FINDINGS: The left ventricle is normal in size. Transient Ischemia Dilatation of 0.97. The left ventricular ejection fraction is normal with a value of 86%. There is normal left ventricular wall thickening. IMPRESSIONS 1. Myocardial perfusion imaging is normal. 2. Overall left ventricular systolic function is normal without regional wall motion abnormalities,LVEF=86%. 3. Normal EKG response to exercise. Refer to separate report for details. 4. Scan indicates low risk for cardiac events. Khushboo Lopez MD (Electronically Signed) Final Date: 18 March 2023 13:03 S
--- NOTE | 2023-03-17 08:15 | ECG_ITS ---
[facility] Test Date: 2023-03-17 Pat Name: Tiffanie Wayne Department: Room: Gender: Female Sales Contracts Analyst: : 1965 Requested By: Marquita Knight Order Number: [id number] Benites MD: Khushboo Lopez M.D. Interpretive Statements NAME OF STUDY: EXERCISE SESTAMIBI STRESS TEST INDICATION: Chest Pain Baseline blood pressure of 154/98 mm Hg, heart rate of 102 beats per minute and oxygen saturation 95%. EKG showed sinus tachycardia, normal axis with normal ST-Ts. The patient exercised for 4 minutes 35 seconds on a standard Zachariah protocol. Patient attained a maximum heart rate of 168 beats per minute(101% of the maximum predicted heart rate) with a blood pressure at the peak exercise of 199/71 mm Hg and saturation 93%. The EKG at the peak exercise revealed sinus tachycardia with no significant ST-T wave changes. Patient did not have any chest pain or any significant arrhythmis with the exercise. Study was terminated due to maximal effort. During the recovery phase, there were no new changes. Blood pressure at the end of the recovery phase was 141/89 mm Hg with a heart rate of 104 beats per minute and oxygen saturation of 94%. CONCLUSION: 1. Normal EKG response to treadmill exercise. 2. No exercise-induced chest pain or cardiac arrhythmia 3. Fair exercise tolerance, attained a maximum of 7 METs. 4. Baseline hypertension with normal response to exercise. 5. Perfusion scan will be documented separately. Electronically Signed On 03-18-2023 13:08:19 CDT by Khushboo Lopez M.D. [id number]
[2023-03-17 10:03] VITALS: BP 141/89; PULSE 98
== END 2023-03-17 07:58 | disposition home or self-care (01) ==
LOC: CDL 07:57
PROVIDERS: PCP Physician Assistant; Visit Provider Physician Assistant
DX: R07.9 Chest pain, unspecified (principal)
CPT/HCPCS: 36415; 78452; 93017; A9500

== ENCOUNTER 2023-04-28 14:25 | Outpatient (CLI) | payer OTHER, SELFPAY ==
--- NOTE | 2023-04-28 14:26 | MM_ITS ---
WS: [id number] BILATERAL 3D TOMOSYNTHESIS DIGITAL SCREENING MAMMOGRAPHY WITH CAD CLINICAL INFORMATION: SCREENING HISTORY: Screening mammogram. No current complaints. COMPARISON: 2021 TECHNIQUE: Bilateral CC and MLO views. FINDINGS: The breasts are composed of heterogeneous fibroglandular density tissue, which can limit the detectio n of small underlying mass lesions. No suspicious mass, asymmetry, calcifications, or architectural d istortion. No evidence of malignancy. Punctate and lucent centered calcifications. IMPRESSION: MM/[place] [id number] BI-RADS: 2-Benign FOLLOW UP: 1 Year Follow-up Recommend return to annual screening mammography.
== END 2023-04-28 14:26 | disposition home or self-care (01) ==
LOC: RAD 14:25
PROVIDERS: PCP Physician Assistant; Visit Provider Physician Assistant
DX: Z12.31 Encounter for screening mammogram for malignant neoplasm of breast (principal)
CPT/HCPCS: 77063; 77067

== ENCOUNTER 2024-05-06 10:38 | Outpatient (CLI) | payer OTHER, SELFPAY ==
--- NOTE | 2024-05-06 10:43 | MM_ITS ---
WS: [id number] BILATERAL SCREENING DIGITAL TOMOSYNTHESIS MAMMOGRAM WITH CAD HISTORY: SCREEN COMPARISON: 04/28/2023, 04/29/2022 Bilateral CC and MLO views with tomosynthesis and synthetic mammography submitted. Computer aided det ection analyzed. Breast composition: There are scattered areas of fibroglandular density. No suspicious masses, microc alcifications or architectural distortion. Several scattered calcifications in the LEFT breast. MM/MM scr BI tomosynthesis [id number] IMPRESSION: BI-RADS: 2 - Benign. FOLLOW UP: 1 Year Follow-up
== END 2024-05-06 10:39 | disposition home or self-care (01) ==
LOC: RAD 10:39
PROVIDERS: PCP Physician Assistant; Visit Provider Physician Assistant
DX: Z12.31 Encounter for screening mammogram for malignant neoplasm of breast (principal); R92.323 Mammographic fibroglandular density, bilateral breasts; R92.1 Mammographic calcification found on diagnostic imaging of breast
CPT/HCPCS: 77063; 77067

== ENCOUNTER 2025-02-09 15:00 | Outpatient (CLI) | payer OTHER, SELFPAY ==
--- NOTE | 2025-02-09 15:05 | CT_ITS ---
WS: [id number] LDCT LUNG CANCER SCREENING HISTORY: NICOTINE DEPENDENCE,CIGARETTES TECHNIQUE: Axial imaging performed from the apices to 1 cm below the costophrenic angles. Coronal and sagittal reformats are submitted with axial MIP series. All CT scans at [facility] use at least one of these dose optimization techniques: automated exposure control; mA and/or kV adjustment per patient size (includes targeted exams where dose is matched to clinical indication); or iterative reconstruction. DLP: 55.92 mGy.cm DIvol: Mean CTDIvol: 1.10 (mGy) COMPARISON: 04/15/2022 Diagnostic quality: Satisfactory Lungs: Moderate hyperexpansion. Thin linear atelectasis at the LEFT lung base. Granuloma RIGHT upper lobe and RIGHT lower lobe. No suspicious masses. There is no mass increasing in size. Mild thickening of the RIGHT fissure is similar to the prior study. Heart: Normal size heart with no pericardial effusion.. Minimal coronary artery calcification. Other findings: Mild atherosclerosis aorta. Aberrant RIGHT subclavian artery. Normal size pulmonary artery. No adrenal mass. Moderate increase in thoracic kyphosis. CT/CT lung screening [id number] IMPRESSION: LUNG-RADS: 2-Benign Appearance or Behavior FOLLOW UP: 12 Month: Continue annual screening with LDCT OTHER FINDINGS (S MODIFIER): None.
== END 2025-02-09 15:01 | disposition home or self-care (01) ==
LOC: RAD 15:02
PROVIDERS: Family Provider Family Medicine; PCP Family Medicine; Visit Provider Physician Assistant
DX: F17.210 Nicotine dependence, cigarettes, uncomplicated (principal); R91.8 Other nonspecific abnormal finding of lung field; I70.0 Atherosclerosis of aorta
CPT/HCPCS: 71271

== ENCOUNTER → 2025-02-11 14:17 | Outpatient (BNVA) | payer OTHER, SELFPAY | PROVIDERS: Family Provider Family Medicine; PCP Family Medicine; Visit Provider Family Medicine | DX: Z91.018 Allergy to other foods (principal); R10.9 Unspecified abdominal pain; G89.29 Other chronic pain | CPT/HCPCS: 82785; 86001; 86003 ==

== ENCOUNTER 2025-02-24 10:44 | Outpatient (CLI) | payer OTHER, SELFPAY ==
--- NOTE | 2025-02-24 10:50 | MR_ITS ---
WS: [id number] MRI CERVICAL SPINE NONCONTRAST TECHNIQUE: Sagittal T1, T2 and STIR imaging. Axial T2, gradient, and fiesta imaging. CLINICAL INFORMATION: CERVICAL MYELOPATHY/DZ OF SPINAL CORD COMPARISON: None. FINDINGS: Study of the normal cervical lordosis. Disc osteophyte complex worse at C5-6. Slight anterolisthesis C3 on C4 and C4 on C5. Slight anterolisthesis C7 on T1. C2-C3: Mild facet arthropathy. C3-C4: Mild facet arthropathy. Spinal canal and foramen are patent. C4-C5: No significant disc bulging. Mild facet arthropathy. Spinal canal and foramen are patent. C5-C6: Disc osteophyte complex with slight effacement of the ventral thecal sac. Moderate LEFT bony foraminal narrowing. Mild RIGHT bony foraminal narrowing. Moderate facet arthropathy. C6-C7: Mild disc bulging. Spinal canal and foramen are patent. Mild facet arthropathy. C7-T1: Slight anterolisthesis. Spinal canal and foramen are patent. Mild facet arthropathy. Visualized brain stem structures: Normal. Prevertebral soft tissues: Normal. MR/MR cervical spin wo con* [id number] IMPRESSION: 1. Straightening of the normal cervical lordosis. Slight anterolisthesis C3 on C4, C4 on C5, and C7 on T1. 2. Disc osteophyte complex at C5-C6 with slight effacement of the ventral thec al sac. 3. Moderate LEFT C5-C6 bony foraminal narrowing.
--- NOTE | 2025-02-24 10:50 | MR_ITS ---
WS: [id number] MRI LEFT SHOULDER NONCONTRAST TECHNIQUE: Sagittal T2, coronal T1, T2 and proton density imaging. Axial gradient PDE imaging. CLINICAL INFORMATION: INTERNAL DERANGEMENT OF L SHOULDER COMPARISON: None. FINDINGS: Advanced joint arthritis AC joint with moderate acromial downsloping. Impingement on the rotator cuff. Tendinopathy supraspinatus. Small supraspinatus bursal surface tear deep to the acromial tip. No tendon retraction. Infraspinatus is intact. Tiny insertional infraspinatus tear. Tiny insertional supraspinatus tear. Normal teres minor. Subscapularis tendon appears intact. Medial subluxation of the proximal biceps tendon along the bicipital groove. Intra-articular biceps tendon appears intact. Small amount of edema in the rotator interval. Moderate degenerative narrowing of the glenohumeral articulation. Degenerative fraying of the glenoid labrum. Subchondral cystic change involving the greater tuberosity. MR/MR shoulder LT wo con* [id number] IMPRESSION: 1. Advanced degenerative arthritis AC joint with narrowing of the subacromial space. 2. Tendinopathy supraspinatus and infraspinatus with tiny insertional tears. 3. Small bursal surface supraspinatus tear deep to the acromial tip. No tendon retraction. 4. Biceps tendon appears intact within the bicipital groove with slight medial subluxation along the proximal bicipital groove. 5. Intra-articular biceps tendon appears intact. 6. Moderate degenerative narrowing at the glenohumeral articulation. 7. No other acute findings.
== END 2025-02-24 10:45 | disposition home or self-care (01) ==
LOC: RAD 10:45
PROVIDERS: Family Provider Family Medicine; PCP Family Medicine; Visit Provider Physician Assistant
DX: G95.9 Disease of spinal cord, unspecified (principal); M19.012 Primary osteoarthritis, left shoulder; S43.082A Other subluxation of left shoulder joint, initial encounter; S46.012A Strain of muscle(s) and tendon(s) of the rotator cuff of left shoulder, initial encounter; X58.XXXA Exposure to other specified factors, initial encounter; M47.812 Spondylosis without myelopathy or radiculopathy, cervical region; M50.322 Other cervical disc degeneration at C5-C6 level; M47.813 Spondylosis without myelopathy or radiculopathy, cervicothoracic region; M48.02 Spinal stenosis, cervical region
CPT/HCPCS: 72141; 73221

== ENCOUNTER → 2025-04-21 11:24 | Outpatient (BNVA) | payer OTHER, SELFPAY | PROVIDERS: Family Provider Family Medicine; PCP Family Medicine; Visit Provider Family Medicine | DX: N89.8 Other specified noninflammatory disorders of vagina (principal) | CPT/HCPCS: 87070; 87205 ==

== ENCOUNTER → 2025-04-25 08:11 | Outpatient (BNVA) | payer OTHER, SELFPAY | PROVIDERS: Family Provider Family Medicine; PCP Family Medicine; Visit Provider Family Medicine | DX: E78.5 Hyperlipidemia, unspecified (principal) | CPT/HCPCS: 80061 ==

== ENCOUNTER 2025-05-09 09:17 | Outpatient (CLI) | payer OTHER, SELFPAY ==
--- NOTE | 2025-05-09 09:58 | MM_ITS ---
WS: [email or web address] BILATERAL SCREENING DIGITAL TOMOSYNTHESIS MAMMOGRAM WITH CAD HISTORY: SCREENING COMPARISON: 05/06/2024, 04/29/2022, 03/06/2020 Bilateral CC and MLO views with tomosynthesis and synthetic mammography submitted. Computer aided detection analyzed. Breast composition: There are scattered areas of fibroglandular density. No suspicious masses, microcalcifications or architectural distortion. Benign calcifications in each breast. MM/MM scr tomosynthesis [id number] IMPRESSION: BI-RADS: 2 - Benign. FOLLOW UP: 1 Year Follow-up
== END 2025-05-09 09:18 | disposition home or self-care (01) ==
LOC: RAD 09:19
PROVIDERS: Family Provider Family Medicine; PCP Family Medicine; Visit Provider Family Medicine
DX: Z12.31 Encounter for screening mammogram for malignant neoplasm of breast (principal); R92.323 Mammographic fibroglandular density, bilateral breasts; R92.1 Mammographic calcification found on diagnostic imaging of breast
CPT/HCPCS: 77063; 77067

== ENCOUNTER 2025-05-26 12:54 | Outpatient (CLI) | payer OTHER, SELFPAY ==
--- NOTE | 2025-05-26 13:04 | XR_ITS ---
WS: [email or web address] XR lumbar spine 2-3V* [id number] REASON FOR EXAM: chronic low back pain FINDINGS: Moderate rotatory levoscoliosis. Exaggeration of the normal lordosis. No significant compression deformity or focal lesion of the lumbar vertebrae. Intervertebral disc spaces are intact and relatively well preserved. 4 to 5 mm of neutral anterolisthesis of L3 on L4. Normal sacrum and sacroiliac joints. XR/XR lumbar spine 2-3V* [id number] IMPRESSION: Alteration of lumbar curvatures and listhesis as above.
--- NOTE | 2025-05-26 13:04 | XR_ITS ---
WS: [email or web address] XR thoracic spine 2V [id number] REASON FOR EXAM: chronic thoracic back pain FINDINGS: Minimal dextroscoliosis of the lower thoracic spine. Moderate dorsal kyphosis secondary to mild to moderate wedge-shaped compression deformity of T8. No other significant vertebral body abnormality. Significant degenerative spondylosis in the mid thoracic spine with moderate degenerative spondylosis in the lower thoracic spine. XR/XR thoracic spine 2V [id number] IMPRESSION: Mild scoliosis and kyphosis with moderate to significant degenerative spondylos is. Moderate wedge-shaped compression deformity of T8.
== END 2025-05-26 12:55 | disposition home or self-care (01) ==
PROVIDERS: PCP Family Medicine; Visit Provider Family Medicine
DX: M47.894 Other spondylosis, thoracic region (principal); G89.29 Other chronic pain; M54.50 Low back pain, unspecified; M41.84 Other forms of scoliosis, thoracic region; M48.54XA Collapsed vertebra, not elsewhere classified, thoracic region, initial encounter for fracture; M41.86 Other forms of scoliosis, lumbar region; R93.7 Abnormal findings on diagnostic imaging of other parts of musculoskeletal system; M43.16 Spondylolisthesis, lumbar region
CPT/HCPCS: 72070; 72100

== ENCOUNTER 2025-06-06 08:07 | Day surgery (SDC) | payer OTHER, SELFPAY ==
[2025-06-06 08:47] VITALS: BP 161/105; PULSE 68; RESP 16; TEMP 36.2; O2SAT 98; BMI 28.9
--- NOTE | 2025-06-06 08:54 | W.PM.OPSFHP ---
Same Day Surgery H&P Indication for Procedure/HPI DATE OF PROCEDURE: June 06, 2025 CHIEF COMPLAINT/INDICATIONFOR SURGICAL PROCEDURE: GERD PREOP DIAGNOSIS: GERD PLANNED PROCEDURE: Operation Date: 06/06/25 10:00 Proposed Procedures p EGD EGD with Biopsy 25246 R12 K21.9(Not Applicable) - Rodriguez Linares MD Medications/Allergies* Home Medications ?Medication ?Instructions ?Recorded ?Confirmed ?Type metoprolol succinate 25 mg 25 mg PO QPM 03/07/21 05/26/25 History tablet,extended release 24 hr multivitamin 1 tab PO BEDTIME 03/07/21 05/26/25 History cholecalciferol (vitamin D3) 25 25 mcg PO DAILY 03/09/21 05/26/25 History mcg (1,000 unit) tablet (Vitamin D3) magnesium 200 mg tablet 200 mg PO DAILY 03/09/21 05/26/25 History zolpidem 5 mg tablet (Ambien) 5 mg PO .at bedtime 02/11/25 05/26/25 History fluticasone propionate 50 1 spray intranasal DAILY 03/08/25 05/26/25 History mcg/actuation nasal spray,suspension loratadine 10 mg tablet (Claritin) 10 mg PO DAILY 03/08/25 05/26/25 History Allergies/Adverse Reactions Allergy/AdvReac Type Severity Reaction Status Date / Time Sulfa (Sulfonamide Allergy Evaristo Verified 05/26/25 09:31 Antibiotics) Lip/Tongue/Throat Pertinent History/Comorbid Conditions* Medical History (Updated 05/26/25 @ 12:48 by Cristiane Huynh DO) Dyslipidemia Surgical History (Updated 02/11/25 @ 13:43 by Cristiane Huynh DO) No pertinent past surgical history Family History (Updated 02/11/25 @ 13:36 by Venessa Motley LPN) Father Grandfather Grandmother Mother Diabetes Father Heart disease Grandfather Grandmother Father Lung cancer Mother Lung disease Mother Social History Smoking and tobacco/nicotine status: former use of tobacco/nicotine Quit status (tobacco/nicotine): has tried quititng Alcohol intake: never Substance/Drug Use: current Substance/Drug use frequency: Special occassions/opportunity only Substance/Drug use type: Marijuana Pertinent Exam Findings alert, oriented x 3, clear to auscultation bilaterally, regular rate & rhythm and procedure specific exam findings abdomen soft, nt, nd Recommendations Risks and benefits of procedure reviewed and Patient/family agree to proceed Surgery/Procedure today Other Plans: Discussed risks and benefits and patient agrees to proceed with EGD with biopsy. Patient understands the risks include aspiration, iatrogenic perforation and still decides to proceed. Coding Level of Care Code Acute Code for Chg Fwd
--- NOTE | 2025-06-06 08:56 | ANES.PREANE2 ---
Pre-Anesthetic Assessment Height/Weight: Height 1.57 m Weight 71.668 kg Temp Pulse Resp BP Pulse Ox O2 Del Method 97.2 F L 68 16 161/105 98 Room Air 06/06/25 08:47 06/06/25 08:47 06/06/25 08:47 06/06/25 08:47 06/06/25 08:47 06/06/25 08:47 Preop Diagnosis: GERD Operation Date: 06/06/25 10:00 Proposed Procedures p EGD EGD with Biopsy 67484 R12 K21.9(Not Applicable) - Rodriguez Linares MD Was Beta Melodie taken within 24 hours: Yes Was Clonidine taken within 24 hours: N/A Last intake: Intake Last Liquid Date 06/05/25 Last Liquid Time 21:00 Last Solid Date 06/05/25 Last Solid Time 19:00 Social Tobacco and No alcohol Rare THC Exam alert, oriented x 3, clear to auscultation bilaterally and regular rate & rhythm Airway Submandibular: within normal limits Cervical ROM: within normal limits Mallampati: Class II Dentition: full History/ROS No significant history except as noted and No significant complaints Pulmonary Exertional Dyspnea CV/HEM Hypertension None reported Hepatic None reported GI Gastroesophageal Reflux Disease Metabolic None reported Musc/skel None reported Neuropsych None reported Anesthetic Plan ASA status: 2 Anesthesia: Anesthesia Evaluation and MAC Risk of > 500 ml blood loss (7ml/kg in children): No Medications/Allergies Home Medications ?Medication ?Instructions ?Recorded ?Confirmed ?Last Taken ?Type metoprolol succinate 25 mg 25 mg PO QPM 03/07/21 05/26/25 06/06/25 History tablet,extended release 24 hr multivitamin 1 tab PO BEDTIME 03/07/21 05/26/25 05/11/25 History cholecalciferol (vitamin D3) 25 25 mcg PO DAILY 03/09/21 05/26/25 05/11/25 History mcg (1,000 unit) tablet (Vitamin D3) magnesium 200 mg tablet 200 mg PO DAILY 03/09/21 05/26/25 05/10/25 History albuterol sulfate 90 mcg/actuation 1 inh inhalation QID PRN shortness 01/25/23 05/26/25 05/08/25 Rx aerosol inhaler (Proventil HFA) of breath or wheezing #6.7 grams zolpidem 5 mg tablet (Ambien) 5 mg PO .at bedtime 02/11/25 05/26/25 05/11/25 History fluticasone propionate 50 1 spray intranasal DAILY 03/08/25 05/26/25 05/11/25 History mcg/actuation nasal spray,suspension loratadine 10 mg tablet (Claritin) 10 mg PO DAILY 03/08/25 05/26/25 2 Weeks Ago History ~04/27/25 tizanidine 4 mg tablet 4 mg PO BID PRN muscle spasticity 03/08/25 05/26/25 05/09/25 Rx #60 tabs sucralfate 100 mg/mL oral 10 ml PO BID 30 days #600 mL 04/21/25 05/26/25 05/11/25 Rx suspension (Carafate) atorvastatin 40 mg tablet (Lipitor) 40 mg PO DAILY #90 tabs 04/26/25 05/26/25 05/10/25 Rx buspirone 5 mg tablet 5 mg PO BID #60 tabs 05/26/25 05/31/25 06/06/25 Rx pantoprazole 40 mg tablet,delayed 40 mg PO BID #60 tabs 05/26/25 05/31/25 06/06/25 Rx release pregabalin 25 mg capsule (Lyrica) 25 mg PO TID #90 caps 05/26/25 05/31/25 Unknown Rx Allergies Allergy/AdvReac Type Severity Reaction Status Date / Time Sulfa (Sulfonamide Allergy ALGY-Swell Verified 05/26/25 09:31 Antibiotics) Lip/Tongue/Throat [facility] Anesthesia Medical History (Updated 05/26/25 @ 12:48 by Cristiane Huynh DO) Dyslipidemia Surgical History No pertinent past surgical history Family History Grandfather Heart disease Grandmother Heart disease Father Heart disease Diabetes Mother Lung disease Lung cancer Social History Smoking and tobacco/nicotine status: former use of tobacco/nicotine Quit status (tobacco/nicotine): has tried quititng Alcohol intake: never Substance/Drug Use: current Substance/Drug use frequency: Special occassions/opportunity only Substance/Drug use type: Marijuana Data Anesthesia Cardiac Studies: Sestamibi Stress Test (Cardiology) 03/17/23
[2025-06-06 09:10] VITALS: BP 126/87; PULSE 74; RESP 20; TEMP 36.1; O2SAT 92
--- NOTE | 2025-06-06 09:50 | ANE.PACU2 ---
Inpatient post-anesthesia follow up: Airway intact: Yes Vital signs: Temperature 97.0 F Pulse Rate 74 Respiratory Rate 20 Blood Pressure 126/87 Pulse Oximetry 92 Oxygen Delivery Me thod Nasal Cannula Oxygen Flow Rate Fraction of Inspir ed Oxygen Hydration adequate: Yes Nausea and vomiting: No Pain level: 1 Mental status: Baseline
== END 2025-06-06 09:50 | disposition home or self-care (01) ==
PROVIDERS: PCP Family Medicine; Visit Provider Student in an Organized Health Care Education/Training Program
PROC: 0DJ08ZZ Inspection of Upper Intestinal Tract, Via Natural or Artificial Opening Endoscopic (ICD-10-PCS; principal; 2025-06-06 10:00)
DX: K21.9 Gastro-esophageal reflux disease without esophagitis (principal); K29.70 Gastritis, unspecified, without bleeding; E78.5 Hyperlipidemia, unspecified; Z80.1 Family history of malignant neoplasm of trachea, bronchus and lung; Z87.891 Personal history of nicotine dependence; I10 Essential (primary) hypertension
CPT/HCPCS: 43239; 88305; J2704; J7030